=== PATIENT | male | born 1960 | race Caucasian/White ===

== ENCOUNTER 2022-06-30 19:51 | Emergency (ER) | payer MEDICAID ==
[~2022-06-30] VITALS: Ht 167.6 cm; Wt 68.0 kg
[2022-06-30 19:51] VITALS: BP 132/81
--- NOTE | 2022-06-30 19:51 | NUR ---
BIBA AND INTO BED 9 WITH C/O POSSIBLE OD. PT WAS FOUND WITH SNORING RESPIRATIONS ON SIDE OF ROAD. 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 WHITE SUBSTANCE WAS NOTED AROUND PTS NARES. WHEN [facility] IMPROVED, PT STATED IT WAS METHADONE. NASAL TRUMPET IN LEFT NARE
--- NOTE | 2022-06-30 20:14 | NUR ---
[employer] [employer] PRESENT TO DROP OFF PT BELONGINGS. INCIDENT NUMBER [id number]
--- NOTE | 2022-06-30 22:00 | NUR ---
RESTING COMFORTABLY IN NAD
[2022-07-01 00:05] VITALS: BP 124/78
--- NOTE | 2022-07-01 00:05 | NUR ---
Patient discharged with v/s stable. Written and verbal after care instructions given and explained. Patient verbalized understanding. Ambulatory with steady gait. All questions addressed prior to discharge. Advised to follow up with PMD.
== END 2022-07-01 00:05 | disposition home or self-care (01) ==
LOC: MED 19:51
DX: F11.129 Opioid abuse with intoxication, unspecified (principal)
CPT/HCPCS: 99283